=== PATIENT | female | born 1980 | race Caucasian/White ===

== ENCOUNTER 2016-03-22 12:24 | Day surgery (SDC) | payer OTHER ==
[2016-03-09 13:21] VITALS: BMI 30.1
[~2016-03-22 12:24] MED LIST: DEXAMETHASONE SOD PHOSPHATE 10 MG/ML 1 ML VIAL IV ONE; HEPARIN SODIUM,PORCINE 5,000 UNIT/ML 1 ML VIAL SQ ONE; HYDROmorphone 1 MG/ML 1 ML SYRINGE IVP PRN; LACTATED RINGERS 1,000 ML IV ONE; MIDAZOLAM 2 MG/2 ML VIAL IV PRN; ONDANSETRON 4 MG/2 ML VIAL IVP ONE; Pre Op ABX Message 1 EACH MISC MISCELLANE ONE; ceFAZolin 2 GM in SODIUM CHLORIDE 0.9% 100 ML IVPB ONE
[2016-03-22 12:49] VITALS: TEMP 97.2
[2016-03-22] MEDS ORDERED: LIDOCAINE 1% 20 ML VIAL (10MG/ML) FOR IV START INTRADERMA ONE (13:12)
[2016-03-22] MEDS ORDERED: HEPARIN SODIUM,PORCINE 5,000 UNIT/ML 1 ML VIAL SQ ONE (15:03)
[2016-03-22] MEDS ORDERED: KETOROLAC 30 MG/ML 1 ML VIAL ONE (15:07)
[2016-03-22] MEDS ORDERED: LIDOCAINE 1% INJ 10MG/ML (20 ML MDV) ONE (15:07)
[2016-03-22] MEDS ORDERED: fentaNYL (PF) 50 MCG/ML 2 ML AMP ONE (15:07)
[2016-03-22] MEDS ORDERED: PROPOFOL 10 MG/ML 20 ML VIAL IV ONE (15:07)
[2016-03-22] MEDS ORDERED: MIDAZOLAM 2 MG/2 ML VIAL ONE (15:07)
[2016-03-22] MEDS ORDERED: LIDOCAINE 1% INJ 10MG/ML (20 ML MDV) SQ ONE (15:24)
--- NOTE | 2016-03-22 15:41 | P.OP ---
Date of Procedure: 03/22/16 Preoperative Diagnosis: Right axillary, right chest wall cystic lesion Postoperative Diagnosis: Same Procedure(s) Performed: Excision of cystic lesion right axilla and chest wall Anesthesia: MAC Surgeon: Radha Lackey Estimated Blood Loss (ml): 5 IV fluids (ml): 250 Pathology: other (Cystic lesion right inferolateral chest wall) Condition: stable Disposition: PACU Indications for Procedure: Cystic lesion right axillary chest wall Operative Findings: Cystic lesions right axilla, right chest wall Description of Procedure: Patient was taken to the operating room and following sedation the right axilla and right chest wall were prepped and draped in a sterile fashion. One percent lidocaine was used to anesthetize the areas of concern. Wide excision was performed. That in the axilla. 2 small cystic areas which were superficial the wound and the chest wall was isolated small nodular area which was superficial as well as deep tissues were closed using 3-0 Vicryl suture on both the skin incisions were closed using nylon. The patient tolerated the procedure in stable condition. Specimen sent to pathology.
--- NOTE | 2016-03-22 15:42 | P.DS ---
Providers Attending physician: Radha Lackey Primary care physician: Chapis Lujan Plan - Discharge Summary Discharge Medication List No Known Home Medications [No Known Home Medications] 03/09/16 [History] Follow up Appointment(s)/Referral(s): Radha Lackey MD [STAFF PHYSICIAN] - 1 Week Activity/Diet/Wound Care/Special Instructions: Do not drive today Patient may shower after 24 hours Discharge Disposition: HOME SELF-CARE
[2016-03-22 16:06] VITALS: BP 108/73; PULSE 62; RESP 18
--- NOTE | 2016-04-08 13:26 | CDI ---
Dr. Lackey Ms Wayne was seen on 03/22 for excision of cystic lesions of both the axilla and right chest wall. Please clarify the size of these two lesions excised. Axilla: 0.5 cm or less 0.6 cm to 1.0 cm 1.1 to 2 cm 2.1 to 3.0 cm 3.1 to 4.0 cm over 4.0 cm Chest wall 0.5 cm or less 0.6 cm to 1.0 cm 1.1 to 2 cm 2.1 to 3.0 cm 3.1 to 4.0 cm over 4.0 cm Please document your findings on an addendum to the procedure note. Thank you for your time. DENISSE
--- NOTE | 2016-04-12 14:23 | CDI ---
Ms. Wayne was seen on 03/22 for excision of cystic lesions of both the axilla and right chest wall. Please clarify the size of these two lesions excised. Axilla: 0.5 cm or less 0.6 cm to 1.0 cm 1.1 to 2 cm 2.1 to 3.0 cm 3.1 to 4.0 cm over 4.0 cm Chest wall 0.5 cm or less 0.6 cm to 1.0 cm 1.1 to 2 cm 2.1 to 3.0 cm 3.1 to 4.0 cm over 4.0 cm Please document the sizes on an addendum to the procedure note. Thank you for your time. DENISSE
--- NOTE | 2016-04-27 07:03 | CDI ---
Ms. Wayne was seen on 03/22 for excision of 2 small cystic lesions of both the axilla and right chest wall. Please clarify the size of these two lesions excised. Axilla: 0.5 cm or less 0.6 to 1.0 cm 1.1 to 2 cm 2.1 to 3.0 cm 3.1 to 4.0 cm over 4.0 cm Chest wall: 0.5 cm or less 0.6 to 1.0 cm 1.1 to 2 cm 2.1 to 3.0 cm 3.1 to 4.0 cm over 4.0 cm Please document the sizes on an addendum to the procedure note. Thank you for your time. DENISSE
--- NOTE | 2016-05-04 08:50 | CDI ---
Dr. Lackey Ms Wayne was seen on 03/22 for excision of cystic lesions of both the axilla and right chest wall. Per coding rules, coders are not allowed to take dimensions from the pathology report. The dimensions must be clarified by the provider. Please clarify the size of these two lesions excised. Axilla: 0.5 cm or less 0.6 cm to 1.0 cm 1.1 to 2 cm 2.1 to 3.0 cm 3.1 to 4.0 cm over 4.0 cm Chest wall 0.5 cm or less 0.6 cm to 1.0 cm 1.1 to 2 cm 2.1 to 3.0 cm 3.1 to 4.0 cm over 4.0 cm Please document your findings on an addendum to the procedure note or an addendum to the discharge summary. Thank you for your time. DENISSE
--- NOTE | 2016-05-06 08:38 | P.PN ---
Progress Note - Text Addendum to operative report: Please note the lesion on the chest wall was approximately 1.7 cm The lesion in the axilla was approximately 1.5 cm This was from surgery performed 03/22/2016
== END 2016-03-22 16:23 | disposition home or self-care (01) ==
LOC: OR 12:24
PROVIDERS: ATTEND Surgery
DX: L72.0 Epidermal cyst (principal); L90.5 Scar conditions and fibrosis of skin; F17.200 Nicotine dependence, unspecified, uncomplicated
CPT/HCPCS: 11402 ×2; 81025; 88304; J2250; J1644; J1100; J0690; J2405; J2001; J3010; J1885; J2704; 99152; 99153